=== PATIENT | female | born 1950 ===

== ENCOUNTER → 2016-07-22 | Outpatient (CLI) | payer SELFPAY ==
--- NOTE | 2016-07-22 15:22 | DI ---
MRI LOW EXTREMITY JNT W/O CN,07/22/2016 1:26 PM: Clinical History: Left hip pain and abnormal lesion seen on plain film. Previous Exam: None available. Plain film was not seen at this time. Findings: Multiplanar MR images are obtained through the pelvis without contrast, and demonstrate loss of joint space involving the hips bilaterally without any full-thickness defects. There is some sclerosis inv olving the weightbearing surface of the acetabulum and femoral head. There is some diffuse red marrow throughout the pelvis and the hips. There is no evidence of avascular necrosis. Limited evaluation of the acetabular dea demonstrates some mild degenerative tearing. Multiple colonic diverticula are seen which are not well evaluated on this exam. The urinary bladder is unremarkable. Impression: There are changes of the hips without full-thickness defects. 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
== END ==
LOC: MRI 13:17
PROVIDERS: ATTEND Family Medicine
DX: R93.7 Abnormal findings on diagnostic imaging of other parts of musculoskeletal system (principal)
CPT/HCPCS: 73721

== ENCOUNTER → 2016-11-03 | Outpatient (CLI) | payer SELFPAY ==
--- NOTE | 2016-11-03 12:14 | DI ---
HISTORY: Cough. FINDINGS: The heart is in the upper limits of normal with atheromatous changes of the dorsal aorta. There is accentuation of the pulmonary vasculature in both lower lung beal especially in both lung bases. The lung beal are otherwise essentially clear. IMPRESSION: 1. 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
== END ==
LOC: MOB RAD 11:38
PROVIDERS: ATTEND Physician Assistant
DX: R05 Cough (principal); F17.200 Nicotine dependence, unspecified, uncomplicated
CPT/HCPCS: 71020